=== PATIENT | female | born 1995 | race Caucasian/White ===

== ENCOUNTER 2018-04-12 18:51 | Inpatient (IN) | payer MEDICAID ==
[~2018-04-12] VITALS: Ht 160 cm; Wt 55.8 kg
[2018-04-12] MEDS ORDERED: NALOXONE HCL 1 MG/ML 2ML VIAL ONE (19:05)
[2018-04-12] MEDS ORDERED: LORAZEPAM 2MG/ML CPJ ONE (19:06)
[2018-04-12] MEDS ORDERED: LORAZEPAM 2MG/ML CPJ IV STA (19:33)
[2018-04-12] MEDS ORDERED: NALOXONE HCL 0.4 MG/ML 1ML VIAL IV STA (19:33)
[2018-04-12] MEDS ORDERED: SODIUM CHLORIDE 0.9% 1,000 ML IV ONE (19:33)
[2018-04-12 20:27] LABS: HEMATOCRIT. 41.1 % (36.0-48.0); HEMOGLOBIN. 13.8 g/dL (12.0-16.0); MEAN CORPUSCULAR HEMOGLOBIN 31.3 pg (28.0-32.0); MEAN CORPUSCULAR VOLUME 92.9 fL (81.0-99.0); MEAN PLATELET VOLUME 8.5 fl (7.4-10.4); PLATELET 367 x1000/uL (130-400); RED BLOOD CELL COUNT 4.42 mill/uL (4.2-5.4); RED CELL DISTRIBUTION WIDTH 13.7 % (11.6-14.6)
[2018-04-12 20:32] LABS: CHLORIDE 104 mEq/L (98-107)
[2018-04-12 20:38] LABS: ETHANOL BLOOD < 10 mg/dL
[2018-04-12 20:45] LABS: PLATELET ESTIMATE NORMAL
[2018-04-12] MEDS ORDERED: DEXT 5%/0.9% NACL 1,000 ML IV ONE (21:00)
[2018-04-12] MEDS ORDERED: DEXTROSE 50% WATER 50ML SYRINGE IV ONE ×2 (22:05→23:48)
[2018-04-13] VITALS (58 sets, daily range): BP systolic 62–150; BP diastolic 31–107
[2018-04-13] MEDS ORDERED: PROPOFOL 10MG/ML 100ML 100 ML IV ONE (02:30)
[2018-04-13] MEDS ORDERED: SUCCINYLCHOLINE CHLORIDE 200MG/10ML VIAL IV ONE ×2 (02:30→13:53)
[2018-04-13] MEDS ORDERED: ETOMIDATE 2MG/ML 10ML VIAL IV ONE ×2 (02:30→13:53)
[2018-04-13] MEDS ORDERED: DEXTROSE 50% WATER 50ML SYRINGE IV ONE (04:07)
[2018-04-13 04:23] LABS: BG BASE EXCESS -4.6 mmol/L (-2.0-2.0); BG CARBOXYHEMOGLOBIN 0.6 % (0.5-1.5); BG DEOXYHEMOGLOBIN 1.8 % (0.0-5.0); BG FRACTION INSPIRED OXYGEN 100; BG HCO3 ACT 18.6 mmol/L (22.0-26.0); BG METHEMOGLOBIN 0.6 % (0.0-1.5); BG OXYGEN SATURATION 98.2 % (92.0-98.5); BG PCO2 26.2 mmHg (35.0-45.0); BG PIP 21 cmH2O; BG SAMPLE SITE RIGHT RADIAL; BG TIDAL VOLUME(mL) 400 mL; BG TOTAL HEMOGLOBIN 6.3 g/dL (12.0-18.0); BG VENT MODE VENT - A/C; BG VENT RATE 14 set
[2018-04-13 04:41] LABS: CLARITY URINE CLEAR (CLEAR); COLOR URINE YELLOW (YELLOW); KETONES URINE NEGATIVE (NEGATIVE); LEUKOCYTE ESTERASE URINE NEGATIVE (NEGATIVE); NITRITE URINE NEGATIVE (NEGATIVE); OCCULT BLOOD URINE 2+ (NEGATIVE); PROTEIN URINE NEGATIVE (NEGATIVE); SPECIFIC GRAVITY URINE 1.009 (1.005-1.030); UROBILINOGEN URINE 0.2 E.U./dL (0.2-1.0)
[2018-04-13 05:16] LABS: *AMPHETAMINES SCREEN URINE NEGATIVE (NEGATIVE); *BARBITURATES SCREEN URINE NEGATIVE (NEGATIVE)
[2018-04-13 05:17] LABS: *BENZODIAZEPINES SCREEN URINE NEGATIVE (NEGATIVE); *COCAINE SCREEN URINE NEGATIVE (NEGATIVE); CANNABINOID URINE SCREEN NEGATIVE (NEGATIVE); METHADONE URINE SCREEN NEGATIVE (NEGATIVE); OPIATES URINE SCREEN NEGATIVE (NEGATIVE); PHENCYCLIDINE URINE SCREEN NEGATIVE (NEGATIVE)
[2018-04-13] MEDS ORDERED: ADENOSINE 3 MG/ML 2ML VIAL IV ONE ×2 (05:43→05:50)
[2018-04-13] MEDS ORDERED: CALCIUM GLUCONATE 100MG/ML 10ML VIAL IV ONE (05:45)
[2018-04-13] MEDS ORDERED: SODIUM CHLORIDE 0.9% 1,000 ML IV NR (05:45)
[2018-04-13] MEDS ORDERED: DILTIAZEM HCL 125 MG in DEXT 5% WATER 100 ML IV NR (05:45)
[2018-04-13] MEDS ORDERED: DILTIAZEM HCL 5MG/ML 5ML VIAL IV NR ×3 (05:45→06:15)
[2018-04-13] MEDS ORDERED: PANTOPRAZOLE SODIUM 40 MG/VIAL IV NR (06:15)
[2018-04-13] MEDS ORDERED: MAGNESIUM 2 G PREMIX 50 ML IV NR (06:15)
[2018-04-13] MEDS ORDERED: FENTANYL CITRATE/PF 500 MCG in SODIUM CHLORIDE 0.9% 40 ML IV STA (06:26)
[2018-04-13 06:36] LABS: HEMATOCRIT 32.1 % (36.0-48.0); HEMOGLOBIN 11.2 g/dL (12.0-16.0); MEAN CORPUSCULAR HEMOGLOBIN 31.7 pg (28.0-32.0); PLATELET 259 x1000/uL (130-400); RED BLOOD CELL COUNT 3.53 mill/uL (4.2-5.4); RED CELL DISTRIBUTION WIDTH 13.5 % (11.6-14.6)
[2018-04-13 06:41] LABS: CHLORIDE 104 mEq/L (98-107)
[2018-04-13] MEDS ORDERED: FENTANYL CITRATE/PF 500 MCG in SODIUM CHLORIDE 0.9% 40 ML IV PRN (06:45)
[2018-04-13] MEDS ORDERED: NOREPINEPHRINE 4 MG in DEXT 5% WATER 246 ML IV ONE (08:15)
[2018-04-13] MEDS ORDERED: NOREPINEPHRINE 4 MG in DEXT 5% WATER 246 ML IV PRN (08:30)
[2018-04-13] MEDS ORDERED: IPRATROPIUM/ALBUTEROL 0.5-3(2.5)MG/3ML NEB HHN PRN (09:30)
[2018-04-13] MEDS ORDERED: DILTIAZEM HCL 125 MG in DEXT 5% WATER 100 ML IV PRN (09:30)
[2018-04-13] MEDS ORDERED: DEXTROSE 10% WATER 500 ML IV ONE (09:30)
[2018-04-13] MEDS ORDERED: KCL 20MEQ/100ML PREMIX 100 ML IV ONE (10:15)
[2018-04-13] MEDS ORDERED: DEXTROSE 50% WATER 50ML SYRINGE IV SCH (10:15)
[2018-04-13] MEDS: BLOOD SUGAR DIAGNOSTIC STRIP TEST SCH ×14 (10:57→23:30)
[2018-04-13] MEDS ORDERED: DEXTROSE 10% WATER 500 ML IV SCH (11:00)
[2018-04-13] MEDS: PANTOPRAZOLE SODIUM 40 MG/VIAL IV SCH ×2 (11:00→22:07)
[2018-04-13] MEDS ORDERED: LIDOCAINE HCL 1% 20ML VIAL (Pyxis) INJ ONE (11:10)
[2018-04-13] MEDS ORDERED: FOLIC ACID 1 MG, THIAMINE HCL 100 MG, MVI, ADULT NO.1 10 ML in DEXT 5%/0.9% NACL 1,000 ML IV SCH ×4 (12:00)
[2018-04-13 12:49] LABS: CLARITY URINE CLEAR (CLEAR); COLOR URINE YELLOW (YELLOW); KETONES URINE NEGATIVE (NEGATIVE); LEUKOCYTE ESTERASE URINE NEGATIVE (NEGATIVE); NITRITE URINE NEGATIVE (NEGATIVE); OCCULT BLOOD URINE TRACE (NEGATIVE); PH URINE 6.5 (4.5-8.0); PROTEIN URINE NEGATIVE (NEGATIVE); SPECIFIC GRAVITY URINE 1.003 (1.005-1.030); UROBILINOGEN URINE 0.2 E.U./dL (0.2-1.0)
[2018-04-13] MEDS: IPRATROPIUM/ALBUTEROL 0.5-3(2.5)MG/3ML NEB HHN SCH ×2 (12:56→20:30)
[2018-04-13] MEDS: KCL 20MEQ/100ML PREMIX 100 ML IV SCH ×3 (12:58→18:19)
[2018-04-13] MEDS: CEFEPIME 2,000 MG in DEXT 5% WATER 100 ML IV SCH ×2 (12:58→22:07)
[2018-04-13] MEDS: NOREPINEPHRINE 16 MG in DEXT 5% WATER 484 ML IV PRN (14:09)
[2018-04-13] MEDS: METRONIDAZOLE 500 MG PREMIX 100 ML IV SCH ×2 (14:41→22:07)
[2018-04-13] MEDS ORDERED: DEXT 10% WATER 1,000 ML IV SCH ×2 (16:45)
[2018-04-13 17:04] LABS: HCG SCREEN NEGATIVE
[2018-04-13] MEDS ORDERED: DOPAMINE 400MG PREMIX 250 ML IV PRN (20:30)
[2018-04-13] MEDS: DEXT 5%/0.45% NACL 1000ML 1,000 ML IV SCH (20:30)
[2018-04-13] MEDS ORDERED: DEXTROSE 10% WATER 1,000 ML IV SCH (20:30)
[2018-04-13 22:07] LABS: BG CARBOXYHEMOGLOBIN 0.6 % (0.5-1.5); BG DEOXYHEMOGLOBIN 0.9 % (0.0-5.0); BG FRACTION INSPIRED OXYGEN 80; BG HCO3 ACT 21.5 mmol/L (22.0-26.0); BG METHEMOGLOBIN 0.4 % (0.0-1.5); BG OXYGEN SATURATION 99.1 % (92.0-98.5); BG OXYHEMOGLOBIN 98.1 % (94.0-97.0); BG PCO2 49.6 mmHg (35.0-45.0); BG PH 7.254 (7.350-7.450); BG SAMPLE SITE RIGHT RADIAL; BG TIDAL VOLUME(mL) 400 mL; BG TOTAL HEMOGLOBIN 15.4 g/dL (12.0-18.0); BG VENT MODE VENT - A/C; BG VENT RATE 12 set
[2018-04-13] MEDS ORDERED: SODIUM CHLORIDE 0.9% IV NR (23:59)
[2018-04-13] MEDS ORDERED: DESMOPRESSIN ACETATE IV NR (23:59)
[2018-04-14] VITALS (143 sets, daily range): BP systolic 64–121; BP diastolic 39–72
[2018-04-14] MEDS: BLOOD SUGAR DIAGNOSTIC STRIP TEST SCH ×10 (00:30→16:33)
[2018-04-14 00:51] LABS: BASOPHILS % 0.3 % (0.0-2.0); EOSINOPHILS % 0.2 % (0.0-5.0); HEMOGLOBIN. 14.3 g/dL (12.0-16.0); LYMPHOCYTES % 11.5 % (20.0-50.0); MEAN CORPUSCULAR HEMOGLOBIN 31.4 pg (28.0-32.0); MEAN CORPUSCULAR VOLUME 94.8 fL (81.0-99.0); MEAN PLATELET VOLUME 8.6 fl (7.4-10.4); MONOCYTES % 2.4 % (2.0-8.0); NEUTROPHILS % 85.6 % (40.0-76.0); PLATELET 282 x1000/uL (130-400); RED BLOOD CELL COUNT 4.54 mill/uL (4.2-5.4); RED CELL DISTRIBUTION WIDTH 13.8 % (11.6-14.6)
[2018-04-14 00:55] LABS: CHLORIDE 122 mEq/L (98-107)
[2018-04-14 00:57] LABS: INR 1.2; PROTHROMBIN TIME 12.6 sec (9.4-11.6)
[2018-04-14 01:03] LABS: PHOSPHORUS 2.5 mg/dL (2.5-4.9)
[2018-04-14] MEDS: IPRATROPIUM/ALBUTEROL 0.5-3(2.5)MG/3ML NEB HHN SCH ×3 (02:23→14:00)
[2018-04-14] MEDS: DEXT 5%/0.45% NACL 1000ML 1,000 ML IV SCH ×2 (04:30→11:06)
[2018-04-14] MEDS: METRONIDAZOLE 500 MG PREMIX 100 ML IV SCH ×2 (05:30→15:43)
[2018-04-14] MEDS ORDERED: SODIUM CHLORIDE 0.9% 1,000 ML IV ONE (05:30)
[2018-04-14] MEDS ORDERED: DILTIAZEM HCL 125 MG in DEXT 5% WATER 100 ML IV PRN (05:30)
[2018-04-14] MEDS: PHENYLEPHRINE 40 MG in DEXT 5% WATER 246 ML IV PRN ×2 (05:31→11:33)
[2018-04-14] MEDS: NOREPINEPHRINE 16 MG in DEXT 5% WATER 484 ML IV PRN ×2 (05:32→17:38)
[2018-04-14 05:45] LABS: BASOPHILS % 0.3 % (0.0-2.0); EOSINOPHILS % 0.6 % (0.0-5.0); HEMATOCRIT. 40.9 % (36.0-48.0); HEMOGLOBIN. 13.5 g/dL (12.0-16.0); MEAN CORPUSCULAR HEMOGLOBIN 31.3 pg (28.0-32.0); MEAN CORPUSCULAR VOLUME 94.4 fL (81.0-99.0); MEAN PLATELET VOLUME 8.7 fl (7.4-10.4); MONOCYTES % 5.2 % (2.0-8.0); NEUTROPHILS % 84.9 % (40.0-76.0); PLATELET 256 x1000/uL (130-400); RED BLOOD CELL COUNT 4.33 mill/uL (4.2-5.4); RED CELL DISTRIBUTION WIDTH 13.9 % (11.6-14.6)
[2018-04-14 05:59] LABS: CHLORIDE 118 mEq/L (98-107)
[2018-04-14 06:12] LABS: INR 1.2; PROTHROMBIN TIME 12.2 sec (9.4-11.6)
[2018-04-14 08:02] LABS: BG BASE EXCESS -6.3 mmol/L (-2.0-2.0); BG CARBOXYHEMOGLOBIN 0.3 % (0.5-1.5); BG DEOXYHEMOGLOBIN 2.1 % (0.0-5.0); BG FRACTION INSPIRED OXYGEN 85; BG HCO3 ACT 21.4 mmol/L (22.0-26.0); BG METHEMOGLOBIN 0.4 % (0.0-1.5); BG OXYGEN SATURATION 97.9 % (92.0-98.5); BG OXYHEMOGLOBIN 97.2 % (94.0-97.0); BG PCO2 51.6 mmHg (35.0-45.0); BG PH 7.236 (7.350-7.450); BG PO2 124.6 mmHg (75.0-100.0); BG SAMPLE SITE RIGHT RADIAL; BG TIDAL VOLUME(mL) 400 mL; BG TOTAL HEMOGLOBIN 13.5 g/dL (12.0-18.0); BG VENT MODE VENT - A/C; BG VENT RATE 16 set
[2018-04-14] MEDS ORDERED: POTASSIUM PHOS,M-BASIC-D-BASIC 30 MMOL in DEXT 5% WATER 500 ML IV SCH (09:00)
[2018-04-14] MEDS: PANTOPRAZOLE SODIUM 40 MG/VIAL IV SCH (09:20)
[2018-04-14] MEDS: CEFEPIME 2,000 MG in DEXT 5% WATER 100 ML IV SCH (09:20)
[2018-04-14 09:53] LABS: BG BASE EXCESS -5.4 mmol/L (-2.0-2.0); BG CARBOXYHEMOGLOBIN 0.3 % (0.5-1.5); BG DEOXYHEMOGLOBIN 0.7 % (0.0-5.0); BG FRACTION INSPIRED OXYGEN 100; BG HCO3 ACT 20.4 mmol/L (22.0-26.0); BG METHEMOGLOBIN 0.4 % (0.0-1.5); BG OXYGEN SATURATION 99.3 % (92.0-98.5); BG OXYHEMOGLOBIN 98.6 % (94.0-97.0); BG PCO2 40.7 mmHg (35.0-45.0); BG PH 7.317 (7.350-7.450); BG PO2 202.8 mmHg (75.0-100.0); BG SAMPLE SITE RIGHT RADIAL; BG TIDAL VOLUME(mL) 400 mL; BG TOTAL HEMOGLOBIN 13.2 g/dL (12.0-18.0); BG VENT MODE VENT - A/C; BG VENT RATE 24 set
[2018-04-14 10:06] LABS: BG BASE EXCESS -7.2 mmol/L (-2.0-2.0); BG CARBOXYHEMOGLOBIN 0.3 % (0.5-1.5); BG DEOXYHEMOGLOBIN 0.6 % (0.0-5.0); BG FRACTION INSPIRED OXYGEN 44; BG METHEMOGLOBIN 0.4 % (0.0-1.5); BG OXYGEN SATURATION 99.4 % (92.0-98.5); BG OXYHEMOGLOBIN 98.7 % (94.0-97.0); BG PCO2 53.5 mmHg (35.0-45.0); BG PH 7.211 (7.350-7.450); BG PO2 244.7 mmHg (75.0-100.0); BG SAMPLE SITE RIGHT RADIAL; BG TOTAL HEMOGLOBIN 13.3 g/dL (12.0-18.0); BG VENT MODE NASAL CANNULA
[2018-04-14] MEDS ORDERED: SODIUM CHLORIDE 0.9% 500 ML IV NR (10:45)
== END 2018-04-14 14:00 | disposition expired | DRG 720 ==
LOC: ER 18:51 → MICUSO 04-13 01:39 → EDBEDREQTM 04-13 01:42 → EDBEDREQ 04-13 01:42 → EDBEDREQSVC 04-13 01:42 → ENRESERV 04-13 06:52
PROVIDERS: ADMIT Internal Medicine; ATTEND Internal Medicine
PROC: 0BH17EZ Insertion of Endotracheal Airway into Trachea, Via Natural or Artificial Opening (ICD-10-PCS; principal; 2018-04-13)
PROC: 5A1935Z Respiratory Ventilation, Less than 24 Consecutive Hours (ICD-10-PCS; 2018-04-13)
PROC: 5A2204Z Restoration of Cardiac Rhythm, Single (ICD-10-PCS; 2018-04-13)
PROC: 05H933Z Insertion of Infusion Device into Right Brachial Vein, Percutaneous Approach (ICD-10-PCS; 2018-04-13)
PROC: B54MZZA Ultrasonography of Right Upper Extremity Veins, Guidance (ICD-10-PCS; 2018-04-13)
DX: A41.9 Sepsis, unspecified organism (principal); I60.9 Nontraumatic subarachnoid hemorrhage, unspecified; J96.00 Acute respiratory failure, unspecified whether with hypoxia or hypercapnia; R65.21 Severe sepsis with septic shock; J69.0 Pneumonitis due to inhalation of food and vomit; G92 Toxic encephalopathy; T38.3X2A Poisoning by insulin and oral hypoglycemic [antidiabetic] drugs, intentional self-harm, initial encounter; E16.2 Hypoglycemia, unspecified; I47.1 Supraventricular tachycardia; F10.10 Alcohol abuse, uncomplicated; E87.6 Hypokalemia; F32.9 Major depressive disorder, single episode, unspecified; I49.9 Cardiac arrhythmia, unspecified; F15.10 Other stimulant abuse, uncomplicated; F12.10 Cannabis abuse, uncomplicated; D64.9 Anemia, unspecified; F19.10 Other psychoactive substance abuse, uncomplicated; E83.39 Other disorders of phosphorus metabolism; Z90.49 Acquired absence of other specified parts of digestive tract; Z83.3 Family history of diabetes mellitus; Z84.1 Family history of disorders of kidney and ureter; Y92.89 Other specified places as the place of occurrence of the external cause
CPT/HCPCS: 36415; 36569; 36600; 51702; 70450; 70551; 71045; 76937; 78615; 80048; 80053; 80305; 80307; 80329; 81003; 81025; 82375; 82805; 82962; 83605; 83735; 84100; 84478; 84703; 85025; 85027; 85610; 87040; 87070; 87086; 93005; 93306; 96361; 96365; 96375; 99291; A9512; C1725; C9113; G0482; J0153; J0330; J0610; J0692; J2060; J2310; J2370; J2597; J2704; J3010; J3411; J3475; J3480; J3490; J7030; J7040; J7042; J7050; J7060; J7620; A4315

== ENCOUNTER 2018-04-14 14:02 | Inpatient (IN) | payer OTHER ==
[2018-04-14] VITALS (17 sets, daily range): BP systolic -3–149; BP diastolic -3–85
[~2018-04-14] VITALS: Ht 157.5 cm; Wt 62.7 kg
[2018-04-14 20:51] LABS: BG BASE EXCESS -4.5 mmol/L (-2.0-2.0); BG CARBOXYHEMOGLOBIN 0.5 % (0.5-1.5); BG DEOXYHEMOGLOBIN 1.6 % (0.0-5.0); BG FRACTION INSPIRED OXYGEN 75; BG HCO3 ACT 19.5 mmol/L (22.0-26.0); BG METHEMOGLOBIN 0.3 % (0.0-1.5); BG OXYGEN SATURATION 98.4 % (92.0-98.5); BG OXYHEMOGLOBIN 97.6 % (94.0-97.0); BG PCO2 32.9 mmHg (35.0-45.0); BG PH 7.391 (7.350-7.450); BG PO2 109.4 mmHg (75.0-100.0); BG SAMPLE SITE RIGHT RADIAL; BG TIDAL VOLUME(mL) 400 mL; BG VENT MODE VENT - A/C; BG VENT RATE 24 set
[2018-04-14] MEDS ORDERED: HETASTARCH/NORMAL SALINE 500 ML PLAST..BAG IV STA (20:59)
[2018-04-14] MEDS ORDERED: VASOPRESSIN 100 UNIT in SODIUM CHLORIDE 0.9% 99.5 ML IV PRN (21:48)
[2018-04-14] MEDS ORDERED: METHYLPREDNISOLONE 40MG/ML INJ IV NR (21:48)
[2018-04-14] MEDS ORDERED: DOBUTAMINE 250MG PREMIX 250 ML IV SCH (21:51)
[2018-04-14] MEDS ORDERED: LEVOTHYROXINE SODIUM 100 MCG/ VIAL IV NR (22:00)
[2018-04-14] MEDS ORDERED: NORMAL SALINE IV NR (22:00)
[2018-04-14] MEDS ORDERED: HETASTARCH IV NR (22:00)
[2018-04-14] MEDS ORDERED: WATER IV SCH (22:30)
[2018-04-14] MEDS ORDERED: DEXT 5% IV SCH (22:30)
[2018-04-14] MEDS ORDERED: METHYLPREDNISOLONE SOD IV SCH (22:30)
[2018-04-14] MEDS: LEVOTHYROXINE SODIUM 100 MCG/ VIAL IV NR ×2 (23:22→23:30)
[2018-04-14] MEDS ORDERED: VASOPRESSIN 100 UNIT in SODIUM CHLORIDE 0.9% 95 ML IV PRN (23:30)
[2018-04-15] VITALS (96 sets, daily range): BP systolic 78–227; BP diastolic 51–102
[2018-04-15] MEDS ORDERED: NOREPINEPHRINE 32 MG in DEXT 5% WATER 468 ML IV PRN ×2
[2018-04-15 00:02] LABS: HEMATOCRIT. 34.8 % (36.0-48.0); HEMOGLOBIN. 11.6 g/dL (12.0-16.0); MEAN CORPUSCULAR HEMOGLOBIN 31.1 pg (28.0-32.0); PLATELET 269 x1000/uL (130-400); RED BLOOD CELL COUNT 3.74 mill/uL (4.2-5.4); RED CELL DISTRIBUTION WIDTH 13.8 % (11.6-14.6)
[2018-04-15 00:09] LABS: CHLORIDE 107 mEq/L (98-107)
[2018-04-15 00:12] LABS: INR 1.4; PARTIAL THROMBOPLASTIN TIME 44.6 sec (23.4-31.0); PROTHROMBIN TIME 14.8 sec (9.4-11.6)
[2018-04-15 00:13] LABS: AMYLASE 113 IU/L (25-115)
[2018-04-15 00:15] LABS: PHOSPHORUS 2.7 mg/dL (2.5-4.9)
[2018-04-15 00:17] LABS: CREATINE KINASE MB FRACTION 7.5 ng/mL (0.5-3.6)
[2018-04-15 00:19] LABS: CREATINE KINASE 456 IU/L (26-192)
[2018-04-15] MEDS: LEVOTHYROXINE SODIUM 200 MCG in SODIUM CHLORIDE 0.9% 500 ML IV SCH ×2 (00:23→20:12)
[2018-04-15] MEDS: VASOPRESSIN 10 UNIT in SODIUM CHLORIDE 0.9% 99.5 ML IV PRN ×6 (00:43→22:28)
[2018-04-15] MEDS ORDERED: KCL 20MEQ/100ML PREMIX 100 ML IV ONE ×3 (00:45→20:30)
[2018-04-15] MEDS ORDERED: MAGNESIUM 2 G PREMIX 50 ML IV SCH (02:00)
[2018-04-15] MEDS: KCL 20MEQ/100ML PREMIX 100 ML IV SCH ×4 (05:02→23:07)
[2018-04-15 05:48] LABS: HEMATOCRIT. 26.2 % (36.0-48.0); MEAN CORPUSCULAR HEMOGLOBIN 31.9 pg (28.0-32.0); MEAN CORPUSCULAR VOLUME 92.6 fL (81.0-99.0); PLATELET 173 x1000/uL (130-400); RED BLOOD CELL COUNT 2.83 mill/uL (4.2-5.4); RED CELL DISTRIBUTION WIDTH 13.6 % (11.6-14.6)
[2018-04-15 05:58] LABS: CHLORIDE 108 mEq/L (98-107)
[2018-04-15] MEDS ORDERED: METHYLPREDNISOLONE SOD SUCC 40 MG/ML VIAL IV SCH (06:00)
[2018-04-15 06:02] LABS: INR 1.6; PARTIAL THROMBOPLASTIN TIME 71.3 sec (23.4-31.0); PROTHROMBIN TIME 17.2 sec (9.4-11.6)
[2018-04-15 06:06] LABS: AMYLASE 144 IU/L (25-115); PHOSPHORUS 2.7 mg/dL (2.5-4.9)
[2018-04-15 06:08] LABS: CREATINE KINASE 318 IU/L (26-192)
[2018-04-15] MEDS ORDERED: INSULIN REGULAR (HUMULIN R) 300UNITS/3ML IV NR (06:11)
[2018-04-15] MEDS ORDERED: DEXT 5% IV NR (07:00)
[2018-04-15] MEDS ORDERED: WATER IV NR (07:00)
[2018-04-15] MEDS ORDERED: CALCIUM CHLORIDE IV NR (07:00)
[2018-04-15 07:27] LABS: CLARITY URINE CLEAR (CLEAR); COLOR URINE YELLOW (YELLOW); PH URINE 6.5 (4.5-8.0); PROTEIN URINE NEGATIVE (NEGATIVE); SPECIFIC GRAVITY URINE 1.013 (1.005-1.030)
[2018-04-15 07:28] LABS: KETONES URINE NEGATIVE (NEGATIVE); LEUKOCYTE ESTERASE URINE NEGATIVE (NEGATIVE); NITRITE URINE NEGATIVE (NEGATIVE); OCCULT BLOOD URINE NEGATIVE (NEGATIVE); UROBILINOGEN URINE 0.2 E.U./dL (0.2-1.0)
[2018-04-15] MEDS: METHYLPREDNISOLONE SOD SUCC 500 MG in DEXT 5% WATER 100 ML IV SCH ×3 (07:56→23:09)
[2018-04-15] MEDS ORDERED: SODIUM BICARBONATE 150 MEQ in WATER FOR INJECTION,STERILE 1,000 ML IV ONE (09:00)
[2018-04-15 10:16] LABS: BG BASE EXCESS -7.9 mmol/L (-2.0-2.0); BG CARBOXYHEMOGLOBIN 0.3 % (0.5-1.5); BG DEOXYHEMOGLOBIN 0.7 % (0.0-5.0); BG FRACTION INSPIRED OXYGEN 50; BG HCO3 ACT 15.1 mmol/L (22.0-26.0); BG OXYGEN SATURATION 99.3 % (92.0-98.5); BG PCO2 23.4 mmHg (35.0-45.0); BG PH 7.428 (7.350-7.450); BG PO2 245.3 mmHg (75.0-100.0); BG SAMPLE SITE A-LINE; BG TOTAL HEMOGLOBIN 9.2 g/dL (12.0-18.0); BG VENT MODE VENT - PCV; BG VENT RATE 19 set
[2018-04-15] MEDS ORDERED: ALBUMIN HUMAN 25GM/100ML (25%) IV SCH (10:55)
[2018-04-15] MEDS ORDERED: FUROSEMIDE 40MG/4ML VIAL IVP SCH (10:55)
[2018-04-15 12:06] LABS: HEMATOCRIT. 26.6 % (36.0-48.0); HEMOGLOBIN. 8.9 g/dL (12.0-16.0); MEAN CORPUSCULAR HEMOGLOBIN 31.4 pg (28.0-32.0); MEAN CORPUSCULAR VOLUME 93.6 fL (81.0-99.0); PLATELET 175 x1000/uL (130-400); RED BLOOD CELL COUNT 2.85 mill/uL (4.2-5.4); RED CELL DISTRIBUTION WIDTH 13.9 % (11.6-14.6)
[2018-04-15 12:15] LABS: BG BASE EXCESS -5.1 mmol/L (-2.0-2.0); BG CARBOXYHEMOGLOBIN 0.3 % (0.5-1.5); BG DEOXYHEMOGLOBIN 1.9 % (0.0-5.0); BG FRACTION INSPIRED OXYGEN 30; BG HCO3 ACT 18.3 mmol/L (22.0-26.0); BG METHEMOGLOBIN 0.6 % (0.0-1.5); BG OXYGEN SATURATION 98.1 % (92.0-98.5); BG OXYHEMOGLOBIN 97.2 % (94.0-97.0); BG PCO2 28.4 mmHg (35.0-45.0); BG PH 7.428 (7.350-7.450); BG PO2 126.3 mmHg (75.0-100.0); BG SAMPLE SITE A-LINE; BG VENT MODE VENT - PCV; BG VENT RATE 15 set
[2018-04-15 12:22] LABS: CLARITY URINE CLEAR (CLEAR); COLOR URINE DARK YELLOW (YELLOW); KETONES URINE NEGATIVE (NEGATIVE); LEUKOCYTE ESTERASE URINE NEGATIVE (NEGATIVE); NITRITE URINE NEGATIVE (NEGATIVE); OCCULT BLOOD URINE TRACE (NEGATIVE); PROTEIN URINE NEGATIVE (NEGATIVE); SPECIFIC GRAVITY URINE 1.034 (1.005-1.030); UROBILINOGEN URINE 0.2 E.U./dL (0.2-1.0)
[2018-04-15 12:25] LABS: PLATELET ESTIMATE NORMAL
[2018-04-15 12:33] LABS: PLATELET ESTIMATE NORMAL
[2018-04-15 12:48] LABS: INR 1.4; PARTIAL THROMBOPLASTIN TIME 66.3 sec (23.4-31.0); PROTHROMBIN TIME 14.7 sec (9.4-11.6)
[2018-04-15 12:58] LABS: CHLORIDE 107 mEq/L (98-107)
[2018-04-15 13:02] LABS: AMYLASE 215 IU/L (25-115)
[2018-04-15 13:04] LABS: PHOSPHORUS 3.3 mg/dL (2.5-4.9)
[2018-04-15 13:07] LABS: CREATINE KINASE 206 IU/L (26-192); CREATINE KINASE MB FRACTION 3.3 ng/mL (0.5-3.6)
[2018-04-15 13:13] LABS: PLATELET ESTIMATE NORMAL
[2018-04-15] MEDS ORDERED: INSULIN REGULAR (HUMULIN R) UD 100 UNITS/ML SYR IV NR ×3 (14:54→22:30)
[2018-04-15] MEDS ORDERED: SODIUM CHLORIDE 0.9% SUBCUT SCH (15:00)
[2018-04-15] MEDS ORDERED: PHYTONADIONE SUBCUT SCH (15:00)
[2018-04-15] MEDS ORDERED: PHYTONADIONE IV SCH (15:33)
[2018-04-15] MEDS ORDERED: SODIUM CHLORIDE 0.9% IV SCH (15:33)
[2018-04-15] MEDS ORDERED: SODIUM CHLORIDE 0.9% IV NR (15:45)
[2018-04-15] MEDS ORDERED: PHYTONADIONE IV NR (15:45)
[2018-04-15] MEDS: ALBUMIN HUMAN 25GM/100ML (25%) IV SCH ×2 (15:49→20:11)
[2018-04-15] MEDS: FUROSEMIDE 40MG/4ML VIAL IVP SCH ×2 (15:49→20:11)
[2018-04-15 18:30] LABS: BG BASE EXCESS -3.7 mmol/L (-2.0-2.0); BG CARBOXYHEMOGLOBIN 0.6 % (0.5-1.5); BG DEOXYHEMOGLOBIN 1.3 % (0.0-5.0); BG FRACTION INSPIRED OXYGEN 30; BG HCO3 ACT 18.2 mmol/L (22.0-26.0); BG METHEMOGLOBIN 0.2 % (0.0-1.5); BG OXYGEN SATURATION 98.7 % (92.0-98.5); BG OXYHEMOGLOBIN 97.9 % (94.0-97.0); BG PCO2 21.4 mmHg (35.0-45.0); BG PH 7.547 (7.350-7.450); BG SAMPLE SITE A-LINE; BG TOTAL HEMOGLOBIN 6.8 g/dL (12.0-18.0); BG VENT MODE VENT - PCV; BG VENT RATE 13 set
[2018-04-15 18:31] LABS: HEMATOCRIT. 24.2 % (36.0-48.0); HEMOGLOBIN. 8.4 g/dL (12.0-16.0); MEAN CORPUSCULAR HEMOGLOBIN 31.6 pg (28.0-32.0); MEAN CORPUSCULAR VOLUME 91.5 fL (81.0-99.0); PLATELET 162 x1000/uL (130-400); RED BLOOD CELL COUNT 2.64 mill/uL (4.2-5.4); RED CELL DISTRIBUTION WIDTH 13.6 % (11.6-14.6)
[2018-04-15 18:33] LABS: CHLORIDE 98 mEq/L (98-107)
[2018-04-15 18:36] LABS: INR 1.5; PROTHROMBIN TIME 15.5 sec (9.4-11.6)
[2018-04-15 18:37] LABS: AMYLASE 222 IU/L (25-115)
[2018-04-15 18:39] LABS: PHOSPHORUS 2.3 mg/dL (2.5-4.9)
[2018-04-15 18:41] LABS: CREATINE KINASE 178 IU/L (26-192)
[2018-04-15] MEDS ORDERED: POTASSIUM PHOS,M-BASIC-D-BASIC 30 MMOL in SODIUM CHLORIDE 0.9% 500 ML IV ONE (20:30)
[2018-04-15 21:00] LABS: PLATELET ESTIMATE NORMAL
[2018-04-15 21:01] LABS: CLARITY URINE CLEAR (CLEAR); COLOR URINE YELLOW (YELLOW); KETONES URINE NEGATIVE (NEGATIVE); LEUKOCYTE ESTERASE URINE NEGATIVE (NEGATIVE); NITRITE URINE NEGATIVE (NEGATIVE); OCCULT BLOOD URINE NEGATIVE (NEGATIVE); PROTEIN URINE NEGATIVE (NEGATIVE); SPECIFIC GRAVITY URINE 1.009 (1.005-1.030); UROBILINOGEN URINE 0.2 E.U./dL (0.2-1.0)
[2018-04-16] VITALS (94 sets, daily range): BP systolic 65–295; BP diastolic 55–293
[2018-04-16] MEDS ORDERED: POTASSIUM PHOS,M-BASIC-D-BASIC 15 MMOL in SODIUM CHLORIDE 0.9% 250 ML IV NR ×2
[2018-04-16 00:08] LABS: BG BASE EXCESS 3.3 mmol/L (-2.0-2.0); BG DEOXYHEMOGLOBIN 2.2 % (0.0-5.0); BG FRACTION INSPIRED OXYGEN 30; BG HCO3 ACT 27.8 mmol/L (22.0-26.0); BG METHEMOGLOBIN 0.2 % (0.0-1.5); BG OXYGEN SATURATION 97.8 % (92.0-98.5); BG OXYHEMOGLOBIN 97.6 % (94.0-97.0); BG PCO2 42.1 mmHg (35.0-45.0); BG PH 7.437 (7.350-7.450); BG PO2 111.7 mmHg (75.0-100.0); BG SAMPLE SITE A-LINE; BG TOTAL HEMOGLOBIN 8.8 g/dL (12.0-18.0); BG VENT MODE VENT - PCV; BG VENT RATE 10 set
[2018-04-16] MEDS: ALBUMIN HUMAN 25GM/100ML (25%) IV SCH ×7 (00:19→23:57)
[2018-04-16] MEDS: KCL 20MEQ/100ML PREMIX 100 ML IV SCH (00:19)
[2018-04-16] MEDS: FUROSEMIDE 40MG/4ML VIAL IVP SCH ×7 (00:21→23:56)
[2018-04-16 01:12] LABS: HEMATOCRIT. 23.1 % (36.0-48.0); PLATELET 201 x1000/uL (130-400); RED BLOOD CELL COUNT 2.51 mill/uL (4.2-5.4); RED CELL DISTRIBUTION WIDTH 13.5 % (11.6-14.6)
[2018-04-16 01:16] LABS: CHLORIDE 95 mEq/L (98-107)
[2018-04-16 01:20] LABS: INR 1.3; PARTIAL THROMBOPLASTIN TIME 55.9 sec (23.4-31.0); PROTHROMBIN TIME 13.4 sec (9.4-11.6)
[2018-04-16 01:21] LABS: AMYLASE 229 IU/L (25-115)
[2018-04-16 01:23] LABS: PHOSPHORUS 3.2 mg/dL (2.5-4.9)
[2018-04-16 01:25] LABS: CREATINE KINASE 263 IU/L (26-192); CREATINE KINASE MB FRACTION 1.8 ng/mL (0.5-3.6)
[2018-04-16 02:10] LABS: CLARITY URINE CLEAR (CLEAR); COLOR URINE YELLOW (YELLOW); KETONES URINE NEGATIVE (NEGATIVE); LEUKOCYTE ESTERASE URINE NEGATIVE (NEGATIVE); NITRITE URINE NEGATIVE (NEGATIVE); OCCULT BLOOD URINE NEGATIVE (NEGATIVE); PROTEIN URINE NEGATIVE (NEGATIVE); SPECIFIC GRAVITY URINE 1.009 (1.005-1.030); UROBILINOGEN URINE 0.2 E.U./dL (0.2-1.0)
[2018-04-16] MEDS ORDERED: INSULIN REGULAR (HUMULIN R) 300UNITS/3ML IV SCH ×2 (02:27→04:35)
[2018-04-16] MEDS: VASOPRESSIN 10 UNIT in SODIUM CHLORIDE 0.9% 99.5 ML IV PRN ×6 (02:43→23:56)
[2018-04-16 05:49] LABS: HEMATOCRIT. 23.5 % (36.0-48.0); MEAN CORPUSCULAR HEMOGLOBIN 31.5 pg (28.0-32.0); MEAN CORPUSCULAR VOLUME 91.7 fL (81.0-99.0); PLATELET 157 x1000/uL (130-400); RED BLOOD CELL COUNT 2.56 mill/uL (4.2-5.4); RED CELL DISTRIBUTION WIDTH 13.7 % (11.6-14.6)
[2018-04-16 05:53] LABS: BG BASE EXCESS 7.8 mmol/L (-2.0-2.0); BG CARBOXYHEMOGLOBIN 0.3 % (0.5-1.5); BG DEOXYHEMOGLOBIN 2.1 % (0.0-5.0); BG FRACTION INSPIRED OXYGEN 30; BG METHEMOGLOBIN 0.2 % (0.0-1.5); BG OXYGEN SATURATION 97.9 % (92.0-98.5); BG OXYHEMOGLOBIN 97.4 % (94.0-97.0); BG PCO2 50.7 mmHg (35.0-45.0); BG PH 7.432 (7.350-7.450); BG PO2 106.1 mmHg (75.0-100.0); BG SAMPLE SITE A-LINE; BG TOTAL HEMOGLOBIN 8.8 g/dL (12.0-18.0); BG VENT MODE VENT - PCV; BG VENT RATE 10 set
[2018-04-16 05:58] LABS: INR 1.2; PARTIAL THROMBOPLASTIN TIME 54.8 sec (23.4-31.0); PROTHROMBIN TIME 12.8 sec (9.4-11.6)
[2018-04-16 06:16] LABS: CLARITY URINE CLEAR (CLEAR); COLOR URINE YELLOW (YELLOW); KETONES URINE NEGATIVE (NEGATIVE); LEUKOCYTE ESTERASE URINE NEGATIVE (NEGATIVE); NITRITE URINE NEGATIVE (NEGATIVE); OCCULT BLOOD URINE NEGATIVE (NEGATIVE); PROTEIN URINE NEGATIVE (NEGATIVE); UROBILINOGEN URINE 0.2 E.U./dL (0.2-1.0)
[2018-04-16] MEDS ORDERED: INSULIN REGULAR (HUMULIN R) 300UNITS/3ML IV NR ×2 (06:34→09:58)
[2018-04-16] MEDS: METHYLPREDNISOLONE SOD SUCC 500 MG in DEXT 5% WATER 100 ML IV SCH ×3 (06:34→23:05)
[2018-04-16 07:23] LABS: CHLORIDE 94 mEq/L (98-107)
[2018-04-16] MEDS ORDERED: KCL 20MEQ/100ML PREMIX 100 ML IV NR ×3 (08:00→12:00)
[2018-04-16 08:25] LABS: CREATINE KINASE MB FRACTION 1.6 ng/mL (0.5-3.6)
[2018-04-16 08:41] LABS: AMYLASE 249 IU/L (25-115)
[2018-04-16 08:47] LABS: CREATINE KINASE 227 IU/L (26-192)
[2018-04-16 08:51] LABS: PLATELET ESTIMATE NORMAL
[2018-04-16] MEDS ORDERED: MAGNESIUM 1 GM IV STA (09:16)
[2018-04-16] MEDS ORDERED: MAGNESIUM 1 G PREMIX 100 ML IV NR (09:30)
[2018-04-16 09:57] LABS: PLATELET ESTIMATE NORMAL
[2018-04-16] MEDS ORDERED: LABETALOL 5MG/ML SYR 20 MG/4 ML SYRINGE IV NR ×2 (11:30→11:36)
[2018-04-16 12:12] LABS: BG BASE EXCESS 8.5 mmol/L (-2.0-2.0); BG CARBOXYHEMOGLOBIN 0.5 % (0.5-1.5); BG DEOXYHEMOGLOBIN 0.1 % (0.0-5.0); BG FRACTION INSPIRED OXYGEN 100; BG HCO3 ACT 32.6 mmol/L (22.0-26.0); BG METHEMOGLOBIN 0.2 % (0.0-1.5); BG OXYGEN SATURATION 99.9 % (92.0-98.5); BG OXYHEMOGLOBIN 99.2 % (94.0-97.0); BG PCO2 43.6 mmHg (35.0-45.0); BG PH 7.492 (7.350-7.450); BG PO2 547.2 mmHg (75.0-100.0); BG SAMPLE SITE A-LINE; BG TOTAL HEMOGLOBIN 8.6 g/dL (12.0-18.0); BG VENT MODE BILEVEL; BG VENT RATE 12 set
[2018-04-16 12:23] LABS: CLARITY URINE CLEAR (CLEAR); COLOR URINE YELLOW (YELLOW); KETONES URINE NEGATIVE (NEGATIVE); LEUKOCYTE ESTERASE URINE NEGATIVE (NEGATIVE); NITRITE URINE NEGATIVE (NEGATIVE); OCCULT BLOOD URINE NEGATIVE (NEGATIVE); PH URINE 7.5 (4.5-8.0); PROTEIN URINE NEGATIVE (NEGATIVE); SPECIFIC GRAVITY URINE 1.007 (1.005-1.030); UROBILINOGEN URINE 0.2 E.U./dL (0.2-1.0)
[2018-04-16 12:29] LABS: CHLORIDE 91 mEq/L (98-107)
[2018-04-16 12:32] LABS: HEMATOCRIT. 23.3 % (36.0-48.0); HEMOGLOBIN. 7.9 g/dL (12.0-16.0); MEAN CORPUSCULAR HEMOGLOBIN 31.2 pg (28.0-32.0); MEAN CORPUSCULAR VOLUME 91.8 fL (81.0-99.0); PLATELET 154 x1000/uL (130-400); RED BLOOD CELL COUNT 2.54 mill/uL (4.2-5.4); RED CELL DISTRIBUTION WIDTH 13.7 % (11.6-14.6)
[2018-04-16 12:33] LABS: AMYLASE 226 IU/L (25-115)
[2018-04-16 12:35] LABS: PHOSPHORUS 2.4 mg/dL (2.5-4.9)
[2018-04-16 12:38] LABS: CREATINE KINASE 205 IU/L (26-192); CREATINE KINASE MB FRACTION 0.8 ng/mL (0.5-3.6)
[2018-04-16 12:40] LABS: INR 1.1; PARTIAL THROMBOPLASTIN TIME 54.2 sec (23.4-31.0)
[2018-04-16 13:01] LABS: PLATELET ESTIMATE NORMAL
[2018-04-16] MEDS: INSULIN REGULAR (DRIP) 100 UNITS in SODIUM CHLORIDE 0.9% 99 ML IV PRN (13:09)
[2018-04-16] MEDS ORDERED: KCL 20MEQ/100ML PREMIX 100 ML IV SCH ×4 (14:00→17:25)
[2018-04-16] MEDS: LABETALOL 5MG/ML SYR 20 MG/4 ML SYRINGE IV PRN ×4 (14:59→16:49)
[2018-04-16] MEDS: LEVOTHYROXINE SODIUM 200 MCG in SODIUM CHLORIDE 0.9% 500 ML IV SCH (15:00)
[2018-04-16 16:11] LABS: BG BASE EXCESS 6.9 mmol/L (-2.0-2.0); BG CARBOXYHEMOGLOBIN 0.3 % (0.5-1.5); BG FRACTION INSPIRED OXYGEN 40; BG HCO3 ACT 29.8 mmol/L (22.0-26.0); BG METHEMOGLOBIN 0.1 % (0.0-1.5); BG OXYHEMOGLOBIN 98.6 % (94.0-97.0); BG PCO2 35.3 mmHg (35.0-45.0); BG PH 7.545 (7.350-7.450); BG PO2 154.8 mmHg (75.0-100.0); BG SAMPLE SITE A-LINE; BG VENT MODE VENT - PCV; BG VENT RATE 12 set
[2018-04-16 16:51] LABS: BG BASE EXCESS 6.6 mmol/L (-2.0-2.0); BG CARBOXYHEMOGLOBIN 0.3 % (0.5-1.5); BG DEOXYHEMOGLOBIN 0.4 % (0.0-5.0); BG FRACTION INSPIRED OXYGEN 100; BG HCO3 ACT 30.7 mmol/L (22.0-26.0); BG METHEMOGLOBIN 0.4 % (0.0-1.5); BG OXYGEN SATURATION 99.6 % (92.0-98.5); BG OXYHEMOGLOBIN 98.9 % (94.0-97.0); BG PH 7.482 (7.350-7.450); BG PO2 444.3 mmHg (75.0-100.0); BG SAMPLE SITE A-LINE; BG TOTAL HEMOGLOBIN 8.5 g/dL (12.0-18.0); BG VENT MODE VENT - PCV; BG VENT RATE 12 set
[2018-04-16] MEDS ORDERED: POTASSIUM PHOS M BASIC D BASIC IV STA (17:25)
[2018-04-16] MEDS ORDERED: SODIUM CHLORIDE 0.9% IV STA (17:25)
[2018-04-16] MEDS ORDERED: ACETAMINOPHEN 325MG TABLET PO SCH (17:30)
[2018-04-16 18:13] LABS: BG BASE EXCESS 11.1 mmol/L (-2.0-2.0); BG CARBOXYHEMOGLOBIN 0.3 % (0.5-1.5); BG DEOXYHEMOGLOBIN 2.3 % (0.0-5.0); BG FRACTION INSPIRED OXYGEN 30; BG HCO3 ACT 35.5 mmol/L (22.0-26.0); BG METHEMOGLOBIN 0.4 % (0.0-1.5); BG OXYGEN SATURATION 97.7 % (92.0-98.5); BG PH 7.496 (7.350-7.450); BG PO2 105.6 mmHg (75.0-100.0); BG SAMPLE SITE A-LINE; BG TOTAL HEMOGLOBIN 8.3 g/dL (12.0-18.0); BG VENT MODE BILEVEL; BG VENT RATE 12 set
[2018-04-16 18:38] LABS: HEMOGLOBIN. 7.9 g/dL (12.0-16.0); MEAN CORPUSCULAR HEMOGLOBIN 32.6 pg (28.0-32.0); PLATELET 148 x1000/uL (130-400); RED BLOOD CELL COUNT 2.42 mill/uL (4.2-5.4); RED CELL DISTRIBUTION WIDTH 13.5 % (11.6-14.6)
[2018-04-16 18:46] LABS: CHLORIDE 93 mEq/L (98-107)
[2018-04-16 18:47] LABS: INR 1.1; PARTIAL THROMBOPLASTIN TIME 49.2 sec (23.4-31.0)
[2018-04-16 18:50] LABS: AMYLASE 240 IU/L (25-115)
[2018-04-16 18:52] LABS: PHOSPHORUS 2.5 mg/dL (2.5-4.9)
[2018-04-16 18:55] LABS: CREATINE KINASE 210 IU/L (26-192); CREATINE KINASE MB FRACTION < 0.5 ng/mL (0.5-3.6)
[2018-04-16 19:25] LABS: CLARITY URINE CLEAR (CLEAR); COLOR URINE YELLOW (YELLOW); KETONES URINE NEGATIVE (NEGATIVE); LEUKOCYTE ESTERASE URINE NEGATIVE (NEGATIVE); NITRITE URINE NEGATIVE (NEGATIVE); OCCULT BLOOD URINE NEGATIVE (NEGATIVE); PH URINE 5.5 (4.5-8.0); PROTEIN URINE NEGATIVE (NEGATIVE); SPECIFIC GRAVITY URINE 1.009 (1.005-1.030); UROBILINOGEN URINE 0.2 E.U./dL (0.2-1.0)
[2018-04-16 21:31] LABS: PLATELET ESTIMATE NORMAL
[2018-04-16] MEDS ORDERED: LABETALOL 5MG/ML SYR 20 MG/4 ML SYRINGE IV SCH (22:15)
[2018-04-17] VITALS (88 sets, daily range): BP systolic 116–214; BP diastolic 76–138
[2018-04-17 00:34] LABS: BG BASE EXCESS 5.6 mmol/L (-2.0-2.0); BG CARBOXYHEMOGLOBIN 0.4 % (0.5-1.5); BG DEOXYHEMOGLOBIN 1.7 % (0.0-5.0); BG FRACTION INSPIRED OXYGEN 30; BG HCO3 ACT 29.2 mmol/L (22.0-26.0); BG METHEMOGLOBIN 0.3 % (0.0-1.5); BG OXYGEN SATURATION 98.3 % (92.0-98.5); BG OXYHEMOGLOBIN 97.6 % (94.0-97.0); BG PCO2 38.5 mmHg (35.0-45.0); BG PH 7.498 (7.350-7.450); BG PO2 118.6 mmHg (75.0-100.0); BG SAMPLE SITE A-LINE; BG TOTAL HEMOGLOBIN 8.3 g/dL (12.0-18.0); BG VENT MODE BI LEVEL; BG VENT RATE 12 set
[2018-04-17 00:36] LABS: HEMATOCRIT. 22.3 % (36.0-48.0); HEMOGLOBIN. 7.5 g/dL (12.0-16.0); MEAN CORPUSCULAR HEMOGLOBIN 30.8 pg (28.0-32.0); MEAN CORPUSCULAR VOLUME 91.5 fL (81.0-99.0); PLATELET 146 x1000/uL (130-400); RED BLOOD CELL COUNT 2.44 mill/uL (4.2-5.4); RED CELL DISTRIBUTION WIDTH 13.5 % (11.6-14.6)
[2018-04-17 00:41] LABS: CHLORIDE 92 mEq/L (98-107)
[2018-04-17 00:45] LABS: AMYLASE 258 IU/L (25-115); INR 1.1; PARTIAL THROMBOPLASTIN TIME 46.8 sec (23.4-31.0); PROTHROMBIN TIME 11.9 sec (9.4-11.6)
[2018-04-17 00:47] LABS: PHOSPHORUS 3.3 mg/dL (2.5-4.9)
[2018-04-17 00:50] LABS: CREATINE KINASE 190 IU/L (26-192); CREATINE KINASE MB FRACTION < 0.5 ng/mL (0.5-3.6)
[2018-04-17] MEDS ORDERED: KCL 20MEQ/100ML PREMIX 100 ML IV STA ×3 (01:11)
[2018-04-17] MEDS ORDERED: KCL 20MEQ/100ML PREMIX 100 ML IV ONE (01:15)
[2018-04-17 01:18] LABS: CLARITY URINE CLEAR (CLEAR); COLOR URINE YELLOW (YELLOW); KETONES URINE NEGATIVE (NEGATIVE); LEUKOCYTE ESTERASE URINE NEGATIVE (NEGATIVE); NITRITE URINE NEGATIVE (NEGATIVE); OCCULT BLOOD URINE NEGATIVE (NEGATIVE); PH URINE 6.5 (4.5-8.0); PROTEIN URINE TRACE (NEGATIVE); SPECIFIC GRAVITY URINE 1.018 (1.005-1.030); UROBILINOGEN URINE 0.2 E.U./dL (0.2-1.0)
[2018-04-17] MEDS ORDERED: LABETALOL 5MG/ML SYR 20 MG/4 ML SYRINGE IV SCH (03:00)
[2018-04-17] MEDS ORDERED: POTASSIUM CHLORIDE INJ 80 MEQ in DEXT 5% WATER 500 ML IV SCH (03:00)
[2018-04-17 03:54] LABS: BG BASE EXCESS 9.3 mmol/L (-2.0-2.0); BG CARBOXYHEMOGLOBIN 0.3 % (0.5-1.5); BG DEOXYHEMOGLOBIN 2.1 % (0.0-5.0); BG FRACTION INSPIRED OXYGEN 30; BG HCO3 ACT 31.9 mmol/L (22.0-26.0); BG METHEMOGLOBIN 0.1 % (0.0-1.5); BG OXYGEN SATURATION 97.9 % (92.0-98.5); BG OXYHEMOGLOBIN 97.5 % (94.0-97.0); BG PCO2 35.7 mmHg (35.0-45.0); BG PH 7.569 (7.350-7.450); BG PO2 103.9 mmHg (75.0-100.0); BG SAMPLE SITE A-LINE; BG TOTAL HEMOGLOBIN 10.4 g/dL (12.0-18.0); BG VENT MODE VENT - A/C; BG VENT RATE 10 set
[2018-04-17] MEDS: INSULIN REGULAR (DRIP) 100 UNITS in SODIUM CHLORIDE 0.9% 99 ML IV PRN ×2 (03:56→13:32)
[2018-04-17] MEDS: FUROSEMIDE 40MG/4ML VIAL IVP SCH ×7 (03:56→23:33)
[2018-04-17] MEDS: ALBUMIN HUMAN 25GM/100ML (25%) IV SCH ×6 (03:56→23:33)
[2018-04-17] MEDS: NICARDIPINE 40MG/200ML PREMIX 200 ML IV PRN ×2 (03:57→14:48)
[2018-04-17 04:18] LABS: HEMATOCRIT. 22.8 % (36.0-48.0); HEMOGLOBIN. 7.8 g/dL (12.0-16.0); MEAN CORPUSCULAR VOLUME 90.6 fL (81.0-99.0); PLATELET 164 x1000/uL (130-400); RED BLOOD CELL COUNT 2.52 mill/uL (4.2-5.4); RED CELL DISTRIBUTION WIDTH 13.6 % (11.6-14.6)
[2018-04-17 04:19] LABS: CHLORIDE 90 mEq/L (98-107)
[2018-04-17] MEDS: VASOPRESSIN 10 UNIT in SODIUM CHLORIDE 0.9% 99.5 ML IV PRN ×4 (04:24→22:30)
[2018-04-17 04:25] LABS: AMYLASE 284 IU/L (25-115)
[2018-04-17 04:27] LABS: PHOSPHORUS 2.3 mg/dL (2.5-4.9)
[2018-04-17 04:29] LABS: CREATINE KINASE 238 IU/L (26-192)
[2018-04-17 04:30] LABS: CREATINE KINASE MB FRACTION < 0.5 ng/mL (0.5-3.6)
[2018-04-17 04:34] LABS: BG CARBOXYHEMOGLOBIN 0.3 % (0.5-1.5); BG DEOXYHEMOGLOBIN 0.9 % (0.0-5.0); BG FRACTION INSPIRED OXYGEN 40; BG HCO3 ACT 32.1 mmol/L (22.0-26.0); BG METHEMOGLOBIN 0.4 % (0.0-1.5); BG OXYGEN SATURATION 99.1 % (92.0-98.5); BG OXYHEMOGLOBIN 98.4 % (94.0-97.0); BG PCO2 37.3 mmHg (35.0-45.0); BG PH 7.552 (7.350-7.450); BG PO2 167.9 mmHg (75.0-100.0); BG SAMPLE SITE A-LINE; BG TOTAL HEMOGLOBIN 8.3 g/dL (12.0-18.0); BG VENT MODE VENT - A/C; BG VENT RATE 10 set
[2018-04-17 04:47] LABS: INR 1.1; PARTIAL THROMBOPLASTIN TIME 43.8 sec (23.4-31.0); PROTHROMBIN TIME 11.7 sec (9.4-11.6)
[2018-04-17 05:07] LABS: CLARITY URINE CLEAR (CLEAR); COLOR URINE YELLOW (YELLOW); KETONES URINE NEGATIVE (NEGATIVE); LEUKOCYTE ESTERASE URINE NEGATIVE (NEGATIVE); NITRITE URINE NEGATIVE (NEGATIVE); OCCULT BLOOD URINE NEGATIVE (NEGATIVE); PH URINE >=9.0 (4.5-8.0); PROTEIN URINE 2+ (NEGATIVE); SPECIFIC GRAVITY URINE 1.019 (1.005-1.030); UROBILINOGEN URINE 0.2 E.U./dL (0.2-1.0)
[2018-04-17 05:13] LABS: BG BASE EXCESS 11.1 mmol/L (-2.0-2.0); BG CARBOXYHEMOGLOBIN 0.3 % (0.5-1.5); BG DEOXYHEMOGLOBIN 0.4 % (0.0-5.0); BG FRACTION INSPIRED OXYGEN 100; BG HCO3 ACT 35.1 mmol/L (22.0-26.0); BG METHEMOGLOBIN 0.3 % (0.0-1.5); BG OXYGEN SATURATION 99.6 % (92.0-98.5); BG PCO2 44.7 mmHg (35.0-45.0); BG PH 7.513 (7.350-7.450); BG PO2 425.9 mmHg (75.0-100.0); BG SAMPLE SITE A-LINE; BG TOTAL HEMOGLOBIN 8.1 g/dL (12.0-18.0); BG VENT MODE VENT - A/C; BG VENT RATE 8 set
[2018-04-17] MEDS ORDERED: FUROSEMIDE 20MG/2ML VIAL IVP NR (06:20)
[2018-04-17] MEDS ORDERED: HEPARIN 5000 UNITS/ML VIAL ONE (06:55)
[2018-04-17] MEDS ORDERED: MANNITOL 20% 500 ML IV ONE (06:55)
[2018-04-17] MEDS ORDERED: FUROSEMIDE 40MG/4ML VIAL ONE (06:56)
[2018-04-17] MEDS ORDERED: MAGNESIUM 2 G PREMIX 50 ML IV ONE (07:00)
[2018-04-17] MEDS: METHYLPREDNISOLONE SOD SUCC 500 MG in DEXT 5% WATER 100 ML IV SCH ×3 (07:14→22:42)
[2018-04-17] MEDS ORDERED: LABETALOL HCL 5MG/ML VIAL 20ML IV ONE (09:31)
[2018-04-17 10:12] LABS: PLATELET ESTIMATE NORMAL
[2018-04-17] MEDS ORDERED: LABETALOL 5MG/ML SYR 20 MG/4 ML SYRINGE IV NR ×10 (10:16→18:30)
[2018-04-17 10:20] LABS: PLATELET ESTIMATE NORMAL
[2018-04-17 11:06] LABS: BG BASE EXCESS 10.9 mmol/L (-2.0-2.0); BG CARBOXYHEMOGLOBIN 0.1 % (0.5-1.5); BG FRACTION INSPIRED OXYGEN 40; BG HCO3 ACT 37.7 mmol/L (22.0-26.0); BG METHEMOGLOBIN 0.1 % (0.0-1.5); BG OXYHEMOGLOBIN 97.8 % (94.0-97.0); BG PCO2 61.2 mmHg (35.0-45.0); BG PH 7.407 (7.350-7.450); BG PO2 117.3 mmHg (75.0-100.0); BG SAMPLE SITE A-LINE; BG TOTAL HEMOGLOBIN 11.7 g/dL (12.0-18.0); BG VENT MODE BILEVEL; BG VENT RATE 10 set
[2018-04-17 11:24] LABS: CHLORIDE 92 mEq/L (98-107)
[2018-04-17 11:29] LABS: HEMATOCRIT. 30.8 % (36.0-48.0); HEMOGLOBIN. 10.5 g/dL (12.0-16.0); MEAN CORPUSCULAR HEMOGLOBIN 30.3 pg (28.0-32.0); MEAN CORPUSCULAR VOLUME 88.5 fL (81.0-99.0); PLATELET 147 x1000/uL (130-400); RED BLOOD CELL COUNT 3.48 mill/uL (4.2-5.4); RED CELL DISTRIBUTION WIDTH 14.7 % (11.6-14.6)
[2018-04-17] MEDS ORDERED: LABETALOL 5MG/ML SYR 20 MG/4 ML SYRINGE IV ONE (11:30)
[2018-04-17 11:33] LABS: CREATINE KINASE 316 IU/L (26-192); CREATINE KINASE MB FRACTION < 0.5 ng/mL (0.5-3.6)
[2018-04-17 11:38] LABS: CLARITY URINE CLEAR (CLEAR); COLOR URINE YELLOW (YELLOW); KETONES URINE NEGATIVE (NEGATIVE); LEUKOCYTE ESTERASE URINE NEGATIVE (NEGATIVE); NITRITE URINE NEGATIVE (NEGATIVE); OCCULT BLOOD URINE NEGATIVE (NEGATIVE); PH URINE >=9.0 (4.5-8.0); PROTEIN URINE 3+ (NEGATIVE); SPECIFIC GRAVITY URINE 1.021 (1.005-1.030); UROBILINOGEN URINE 0.2 E.U./dL (0.2-1.0)
[2018-04-17 11:41] LABS: INR 1.1; PARTIAL THROMBOPLASTIN TIME 40.3 sec (23.4-31.0); PROTHROMBIN TIME 11.7 sec (9.4-11.6)
[2018-04-17 11:45] LABS: AMYLASE 320 IU/L (25-115)
[2018-04-17] MEDS ORDERED: POTASSIUM CHLORIDE INJ 40 MEQ in DEXT 5% WATER 500 ML IV ONE (12:00)
[2018-04-17 12:26] LABS: PLATELET ESTIMATE NORMAL
[2018-04-17] MEDS ORDERED: POTASSIUM CHLORIDE INJ 40 MEQ in DEXT 5% WATER 250 ML IV NR ×2 (12:30→14:30)
[2018-04-17 17:40] LABS: BG BASE EXCESS 11.9 mmol/L (-2.0-2.0); BG CARBOXYHEMOGLOBIN 0.3 % (0.5-1.5); BG DEOXYHEMOGLOBIN 0.4 % (0.0-5.0); BG FRACTION INSPIRED OXYGEN 100; BG HCO3 ACT 37.3 mmol/L (22.0-26.0); BG METHEMOGLOBIN 0.3 % (0.0-1.5); BG OXYGEN SATURATION 99.6 % (92.0-98.5); BG PCO2 53.3 mmHg (35.0-45.0); BG PH 7.463 (7.350-7.450); BG SAMPLE SITE A-LINE; BG TOTAL HEMOGLOBIN 10.7 g/dL (12.0-18.0); BG VENT MODE VENT - PCV
[2018-04-17 19:01] LABS: HEMOGLOBIN. 10.4 g/dL (12.0-16.0); MEAN CORPUSCULAR VOLUME 89.4 fL (81.0-99.0); PLATELET 140 x1000/uL (130-400); RED BLOOD CELL COUNT 3.47 mill/uL (4.2-5.4)
[2018-04-17 19:14] LABS: CHLORIDE 92 mEq/L (98-107)
[2018-04-17 19:18] LABS: AMYLASE 256 IU/L (25-115)
[2018-04-17 19:20] LABS: PHOSPHORUS 2.9 mg/dL (2.5-4.9)
[2018-04-17 19:22] LABS: CREATINE KINASE 281 IU/L (26-192); CREATINE KINASE MB FRACTION 0.7 ng/mL (0.5-3.6)
[2018-04-17 19:50] LABS: INR 1.2; PARTIAL THROMBOPLASTIN TIME 41.8 sec (23.4-31.0)
[2018-04-17 19:53] LABS: PLATELET ESTIMATE NORMAL
[2018-04-17 20:07] LABS: CLARITY URINE CLEAR (CLEAR); COLOR URINE YELLOW (YELLOW); KETONES URINE NEGATIVE (NEGATIVE); LEUKOCYTE ESTERASE URINE NEGATIVE (NEGATIVE); NITRITE URINE NEGATIVE (NEGATIVE); OCCULT BLOOD URINE NEGATIVE (NEGATIVE); PH URINE 6.5 (4.5-8.0); PROTEIN URINE 1+ (NEGATIVE); SPECIFIC GRAVITY URINE 1.013 (1.005-1.030); UROBILINOGEN URINE 0.2 E.U./dL (0.2-1.0)
[2018-04-17 20:32] LABS: BG BASE EXCESS 11.7 mmol/L (-2.0-2.0); BG CARBOXYHEMOGLOBIN 0.1 % (0.5-1.5); BG FRACTION INSPIRED OXYGEN 40; BG HCO3 ACT 36.3 mmol/L (22.0-26.0); BG METHEMOGLOBIN 0.2 % (0.0-1.5); BG OXYHEMOGLOBIN 98.7 % (94.0-97.0); BG PCO2 47.4 mmHg (35.0-45.0); BG PH 7.502 (7.350-7.450); BG PO2 164.2 mmHg (75.0-100.0); BG SAMPLE SITE A-LINE; BG TOTAL HEMOGLOBIN 11.3 g/dL (12.0-18.0); BG VENT MODE VENT - PCV; BG VENT RATE 10 set
[2018-04-17] MEDS: KCL 20MEQ/100ML PREMIX 100 ML IV SCH ×2 (21:01→21:58)
[2018-04-17 21:02] LABS: BG BASE EXCESS 10.8 mmol/L (-2.0-2.0); BG CARBOXYHEMOGLOBIN 0.3 % (0.5-1.5); BG DEOXYHEMOGLOBIN 0.4 % (0.0-5.0); BG FRACTION INSPIRED OXYGEN 40; BG HCO3 ACT 35.2 mmol/L (22.0-26.0); BG METHEMOGLOBIN 0.3 % (0.0-1.5); BG OXYGEN SATURATION 99.6 % (92.0-98.5); BG PCO2 45.8 mmHg (35.0-45.0); BG PH 7.503 (7.350-7.450); BG PO2 519.4 mmHg (75.0-100.0); BG SAMPLE SITE A-LINE; BG TOTAL HEMOGLOBIN 11.2 g/dL (12.0-18.0); BG VENT MODE VENT - PCV; BG VENT RATE 10 set
[2018-04-18] VITALS (48 sets, daily range): BP systolic 112–187; BP diastolic 61–117
[2018-04-18 00:12] LABS: BG BASE EXCESS 10.1 mmol/L (-2.0-2.0); BG CARBOXYHEMOGLOBIN 0.2 % (0.5-1.5); BG FRACTION INSPIRED OXYGEN 40; BG METHEMOGLOBIN 0.3 % (0.0-1.5); BG OXYHEMOGLOBIN 98.5 % (94.0-97.0); BG PCO2 48.3 mmHg (35.0-45.0); BG PH 7.478 (7.350-7.450); BG PO2 163.2 mmHg (75.0-100.0); BG SAMPLE SITE A-LINE; BG TOTAL HEMOGLOBIN 11.6 g/dL (12.0-18.0); BG VENT MODE VENT - PCV; BG VENT RATE 10 set
[2018-04-18 00:26] LABS: HEMATOCRIT. 31.2 % (36.0-48.0); HEMOGLOBIN. 10.7 g/dL (12.0-16.0); MEAN CORPUSCULAR HEMOGLOBIN 30.2 pg (28.0-32.0); MEAN CORPUSCULAR VOLUME 88.6 fL (81.0-99.0); PLATELET 154 x1000/uL (130-400); RED BLOOD CELL COUNT 3.53 mill/uL (4.2-5.4); RED CELL DISTRIBUTION WIDTH 14.9 % (11.6-14.6)
[2018-04-18 00:32] LABS: CHLORIDE 91 mEq/L (98-107)
[2018-04-18 00:34] LABS: INR 1.2; PARTIAL THROMBOPLASTIN TIME 39.2 sec (23.4-31.0); PROTHROMBIN TIME 12.2 sec (9.4-11.6)
[2018-04-18 00:35] LABS: AMYLASE 244 IU/L (25-115)
[2018-04-18 00:39] LABS: PHOSPHORUS 2.9 mg/dL (2.5-4.9)
[2018-04-18 00:41] LABS: CREATINE KINASE 251 IU/L (26-192); CREATINE KINASE MB FRACTION 0.6 ng/mL (0.5-3.6)
[2018-04-18 01:11] LABS: CLARITY URINE CLEAR (CLEAR); COLOR URINE YELLOW (YELLOW); KETONES URINE NEGATIVE (NEGATIVE); LEUKOCYTE ESTERASE URINE NEGATIVE (NEGATIVE); NITRITE URINE NEGATIVE (NEGATIVE); OCCULT BLOOD URINE NEGATIVE (NEGATIVE); PROTEIN URINE TRACE (NEGATIVE); SPECIFIC GRAVITY URINE 1.008 (1.005-1.030); UROBILINOGEN URINE 0.2 E.U./dL (0.2-1.0)
[2018-04-18 01:23] LABS: NUCLEATED RED BLOOD CELLS 1 /100 WBC
[2018-04-18 01:24] LABS: PLATELET ESTIMATE NORMAL
[2018-04-18] MEDS ORDERED: LABETALOL 5MG/ML SYR 20 MG/4 ML SYRINGE IV SCH ×2 (02:26→06:15)
[2018-04-18] MEDS: KCL 20MEQ/100ML PREMIX 100 ML IV SCH ×3 (02:33→04:43)
[2018-04-18] MEDS: VASOPRESSIN 10 UNIT in SODIUM CHLORIDE 0.9% 99.5 ML IV PRN ×3 (03:01→10:23)
[2018-04-18] MEDS: ALBUMIN HUMAN 25GM/100ML (25%) IV SCH ×2 (03:37→08:34)
[2018-04-18] MEDS: FUROSEMIDE 40MG/4ML VIAL IVP SCH ×2 (03:37→08:00)
[2018-04-18] MEDS ORDERED: KCL 20 MEQ/100 ML IV ONE (05:15)
[2018-04-18] MEDS ORDERED: POTASSIUM CHLORIDE INJ 80 MEQ in DEXT 5% WATER 500 ML IV SCH (06:00)
[2018-04-18] MEDS: METHYLPREDNISOLONE SOD SUCC 500 MG in DEXT 5% WATER 100 ML IV SCH (06:32)
[2018-04-18] MEDS: INSULIN REGULAR (DRIP) 100 UNITS in SODIUM CHLORIDE 0.9% 99 ML IV PRN (06:48)
[2018-04-18 08:22] LABS: HEMATOCRIT. 31.8 % (36.0-48.0); HEMOGLOBIN. 10.8 g/dL (12.0-16.0); MEAN CORPUSCULAR HEMOGLOBIN 30.1 pg (28.0-32.0); MEAN CORPUSCULAR VOLUME 88.8 fL (81.0-99.0); PLATELET 179 x1000/uL (130-400); RED BLOOD CELL COUNT 3.58 mill/uL (4.2-5.4)
[2018-04-18 08:25] LABS: CLARITY URINE CLEAR (CLEAR); COLOR URINE YELLOW (YELLOW); KETONES URINE NEGATIVE (NEGATIVE); LEUKOCYTE ESTERASE URINE NEGATIVE (NEGATIVE); NITRITE URINE NEGATIVE (NEGATIVE); OCCULT BLOOD URINE 1+ (NEGATIVE); PH URINE 5.5 (4.5-8.0); PROTEIN URINE 4+ (NEGATIVE); SPECIFIC GRAVITY URINE 1.019 (1.005-1.030); UROBILINOGEN URINE 0.2 E.U./dL (0.2-1.0)
[2018-04-18 08:29] LABS: BG BASE EXCESS 7.8 mmol/L (-2.0-2.0); BG CARBOXYHEMOGLOBIN 0.5 % (0.5-1.5); BG DEOXYHEMOGLOBIN 1.3 % (0.0-5.0); BG FRACTION INSPIRED OXYGEN 40; BG HCO3 ACT 31.3 mmol/L (22.0-26.0); BG METHEMOGLOBIN 0.3 % (0.0-1.5); BG OXYGEN SATURATION 98.7 % (92.0-98.5); BG OXYHEMOGLOBIN 97.9 % (94.0-97.0); BG PH 7.512 (7.350-7.450); BG PO2 136.9 mmHg (75.0-100.0); BG SAMPLE SITE A-LINE; BG TOTAL HEMOGLOBIN 11.6 g/dL (12.0-18.0); BG VENT MODE VENT - PCV; BG VENT RATE 10 set
[2018-04-18 08:30] LABS: CHLORIDE 93 mEq/L (98-107)
[2018-04-18] MEDS ORDERED: MAGNESIUM SULFATE 1GM/2ML VIAL IM ONE (08:30)
[2018-04-18] MEDS ORDERED: VECURONIUM BROMIDE 10 MG/VIAL IV SCH (08:30)
[2018-04-18] MEDS ORDERED: ALBUMIN HUMAN 25GM/100ML (25%) IV SCH (08:30)
[2018-04-18 08:31] LABS: INR 1.2; PARTIAL THROMBOPLASTIN TIME 36.8 sec (23.4-31.0); PROTHROMBIN TIME 12.3 sec (9.4-11.6)
[2018-04-18 08:34] LABS: AMYLASE 201 IU/L (25-115)
[2018-04-18 08:36] LABS: PHOSPHORUS 2.5 mg/dL (2.5-4.9)
[2018-04-18 08:39] LABS: CREATINE KINASE 221 IU/L (26-192); CREATINE KINASE MB FRACTION < 0.5 ng/mL (0.5-3.6)
[2018-04-18] MEDS ORDERED: MAGNESIUM 1 G PREMIX 100 ML IV SCH (09:00)
[2018-04-18] MEDS ORDERED: METOPROLOL TARTRATE 5MG/5ML VIAL IV SCH (09:45)
[2018-04-18 09:47] LABS: PLATELET ESTIMATE NORMAL
[2018-04-18] MEDS ORDERED: MANNITOL 20% 500 ML IV ONE (09:59)
[2018-04-18] MEDS ORDERED: VECURONIUM BROMIDE IV PRN (10:00)
[2018-04-18] MEDS ORDERED: VECURONIUM BROMIDE 10 MG in DEXT 5% WATER 100 ML IV PRN (10:00)
[2018-04-18] MEDS ORDERED: SODIUM CHLORIDE 0.9% IV PRN (10:00)
[2018-04-18] MEDS ORDERED: FUROSEMIDE 40MG/4ML VIAL ONE (10:00)
[2018-04-18] MEDS ORDERED: HEPARIN 1000 UNITS/ML 10ML ONE (10:04)
[2018-04-18] MEDS ORDERED: TETRACAINE/BENZOCAINE/BUTAMBEN 20 GM SPRAY MM ONE (11:27)
[2018-04-18] MEDS ORDERED: LIDOCAINE HCL 2% JELLY 5ML ONE (11:28)
[2018-04-18] MEDS ORDERED: ROCURONIUM BROMIDE 10MG/ML VIAL 5ML IV ONE ×2 (11:42→14:07)
[2018-04-18 13:44] LABS: BG BASE EXCESS 6.6 mmol/L (-2.0-2.0); BG CARBOXYHEMOGLOBIN 0.2 % (0.5-1.5); BG DEOXYHEMOGLOBIN 0.7 % (0.0-5.0); BG FRACTION INSPIRED OXYGEN 100; BG HCO3 ACT 30.3 mmol/L (22.0-26.0); BG METHEMOGLOBIN 0.3 % (0.0-1.5); BG OXYGEN SATURATION 99.3 % (92.0-98.5); BG OXYHEMOGLOBIN 98.8 % (94.0-97.0); BG PCO2 39.9 mmHg (35.0-45.0); BG PH 7.498 (7.350-7.450); BG PO2 482.9 mmHg (75.0-100.0); BG SAMPLE SITE A-LINE; BG TOTAL HEMOGLOBIN 10.2 g/dL (12.0-18.0); BG VENT MODE VENT - A/C
[2018-04-18] MEDS ORDERED: MAGNESIUM 2 G PREMIX 50 ML IV NR (14:00)
== END 2018-04-18 15:28 | disposition expired | DRG 44 ==
LOC: MICUSO 14:02
PROC: 5A1945Z Respiratory Ventilation, 24-96 Consecutive Hours (ICD-10-PCS; principal; 2018-04-14)
PROC: 30233N1 Transfusion of Nonautologous Red Blood Cells into Peripheral Vein, Percutaneous Approach (ICD-10-PCS; 2018-04-17)
DX: I60.9 Nontraumatic subarachnoid hemorrhage, unspecified (principal); J96.90 Respiratory failure, unspecified, unspecified whether with hypoxia or hypercapnia; R40.20 Unspecified coma; G93.41 Metabolic encephalopathy; E16.2 Hypoglycemia, unspecified; E87.6 Hypokalemia
CPT/HCPCS: 36415; 36600; 71045; 71250; 74176; 76700; 80053; 81003; 82150; 82248; 82330; 82375; 82550; 82553; 82805; 82962; 82977; 83605; 83615; 83690; 83735; 84100; 84132; 84484; 85007; 85027; 85610; 85730; 86850; 86900; 86920; 87040; 87070; 87086; 93005; 93306; 94003; J1250; J1644; J1815; J1940; J2930; J3430; J3475; J3480; J3490; J7030; J7040; J7050; J7060; P9016; P9047